=== PATIENT | male | born 1985 | race Caucasian/White ===

== ENCOUNTER 2022-04-05 09:43 | Day surgery (SDC) | payer OTHER, SELFPAY ==
--- NOTE | ~2022-04-05 | FL_ITS ---
EXAMINATION: XR LUMBAR PUNCTURE CLINICAL INFORMATION: Idiopathic intracranial hypertension. COMPARISON: None TECHNIQUE: Following the explanation of the fluoroscopy-guided lumbar puncture procedure, benefits and risks, a written informed consent was obtained. Patient was placed prone on the fluoroscopy table and the low back area was cleaned and draped in the usual sterile manner. 1% lidocaine was injected at the puncture site. A 20-gauge short spinal needle was then inserted from a left-sided approach intrathecally at the L4-L5 disc level. After observing CSF return, patient was quickly placed in left lateral decubitus view and opening CSF pressure was obtained. Subsequently clear CSF fluid was collected in 4 test tubes. Post procedure the stylet was reintroduced and needle removed. Complete hemostasis was achieved at the puncture site. Simple Band-Aid was applied post procedure. Patient tolerated the procedure extremely well. FINDINGS: The opening CSF pressure measured 38 cm of water. Approximately 15.5 mL of clear CSF fluid was collected in 4 test tubes. The entire fluid was sent to pathology as per the referring physician's orders. FLUOROSCOPY TIME: 0.6 minutes DOSE AREA PRODUCT: 8.578 uGy-m2 (microgray-meter squared) FL/FL guided lumbar puncture LP IMPRESSION: Successful fluoroscopy-guided lumbar puncture was performed at the L4-L5 disc level.
[2022-04-05 10:01] VITALS: BMI 35.1
[2022-04-05 10:12] VITALS: BP 149/92; PULSE 72; RESP 18; TEMP 36.8; O2SAT 98
[2022-04-05 10:12] LABS: MANUAL DIFF FLAG NO
[2022-04-05 10:17] LABS: Basophils Absolute Auto 0.1 X10*3/uL (0.0-0.2); Basophils Percent Auto 0.7 % (0-2); Eosinophils Absolute Auto 0.2 X10*3/uL (0.0-0.4); Eosinophils Percent Auto 2.6 % (0-4); Hematocrit 47.5 % (42.0-52.0); Hemoglobin 16.4 g/dl (14.0-18.0); Imm Gran Abs Auto 0.02 X10*3/uL (0.00-0.03); Imm Gran Pct Auto 0.3 % (0.0-0.4); Lymphocytes Absolute Auto 2.4 X10*3/uL (1.2-4.9); Lymphocytes Percent Auto 32.5 % (20-40); Mean Corpuscular HGB Conc 34.5 g/dl (31.0-36.0); Mean Corpuscular Volume 92.6 fL (80.0-98.0); Mean Platelet Volume 9.8 fL (9.4-12.4); Monocytes Absolute Auto 0.7 X10*3/uL (0.1-1.2); Neutrophils Percent Auto 54.9 % (45-73); Platelet Count 297 X10*3/uL (160-400); Red Blood Count 5.13 X10*6/uL (4.60-5.80); Red Cell Distribution Width 12.8 % (11.0-16.0); White Blood Count 7.2 X10*3/uL (4.8-10.8)
[2022-04-05 10:33] LABS: Prothrombin Time 11.5 SEC (9.9-13.0)
[2022-04-05 10:36] LABS: Partial Thromboplastin Time 37.3 SEC (24.1-38.0)
[2022-04-05 12:20] VITALS: BP 126/75; PULSE 74; RESP 16; TEMP 37.2; O2SAT 97
[2022-04-05 12:50] VITALS: BP 118/73; PULSE 64; RESP 16; O2SAT 97
[2022-04-05 13:05] LABS: Glucose CSF 54 mg/dL; Total Protein CSF 26.2 mg/dL (15-45)
[2022-04-05 13:20] VITALS: BP 105/66; PULSE 62; RESP 16; O2SAT 97
[2022-04-05 13:26] LABS: Appearance CSF CLEAR; CSF Tube # 4; Color CSF COLORLESS; Lymphocytes CSF 100 %; Red Blood Cell CSF 1 MM*3; White Blood Cell CSF 1 MM*3
[2022-04-05 13:52] VITALS: BP 104/60; PULSE 65; RESP 14; O2SAT 98
[2022-04-05 14:22] VITALS: BP 107/54; PULSE 62; RESP 16; O2SAT 99
[2022-04-05 14:32] LABS: CSF Appearance Clear, Colorless; CSF Tube # 1
== END 2022-04-05 14:50 | disposition home or self-care (01) ==
PROVIDERS: Psychiatry & Neurology Neurology; PCP Internal Medicine; Visit Provider Radiology Diagnostic Radiology
PROC: 009U3ZZ Drainage of Spinal Canal, Percutaneous Approach (ICD-10-PCS; CPT 62270; principal; 2022-04-05 11:00)
DX: G93.2 Benign intracranial hypertension (principal); I10 Essential (primary) hypertension; E66.9 Obesity, unspecified; Z68.35 Body mass index [BMI] 35.0-35.9, adult; H47.10 Unspecified papilledema
CPT/HCPCS: 36415; 62328; 82945; 84157; 85025; 85610; 85730; 87015; 87070; 87205; 89051